=== PATIENT | female | born 1985 | race African-American/Black ===

== ENCOUNTER 2017-08-24 12:36 | Emergency (ER) | payer SELFPAY ==
--- NOTE | 2017-08-24 14:35 | ER Document Report ---
ED Neck/Back Problem - General Chief Complaint: Neck Swelling Stated Complaint: POSSIBLE ABSCESS ON NECK Time Seen by Provider: 08/24/17 14:06 Mode of Arrival: Ambulatory Information source: Patient Notes: Patient is a 31-year-old black female comes emergency room complaining that her anterior portion of her neck is swollen. Patient states that this is been going approximately 1-2 months and states that it is swollen but has no difficulty swallowing or has no type of pain. She also makes mention that her parents especially her mother has a history of thyroid problems. Patient also complains of being somewhat fatigued all the time, constipated, and slightly depressed. Patient denies any other medical problems. TRAVEL OUTSIDE OF THE [place] IN LAST 30 DAYS: No - HPI Patient complains to provider of: Neck. No: Pain, Injury, Upper back, Lower back, 6 Onset: Other - 1-2 months Where: Home Onset: Gradual Timing: Constant, Still present Quality of pain: No pain Severity: Mild Context: denies: Became dizzy, Bending, Fainted, Fall/near-fall, Lifting, Seizure, Turning, Other Associated symptoms: Constipation, Other - Fatigue, depression Exacerbated by: Nothing Relieved by: Nothing Similar symptoms previously: Yes Recently seen / treated by doctor: No - Related Data Allergies/Adverse Reactions: No Known Allergies Allergy (Verified 08/24/17 12:37) Past Medical History - General Information source: Patient Last Menstrual Period: Week ago - Social History Smoking Status: Current Every Day Smoker Cigarette use (# per day): Yes Chew tobacco use (# tins/day): No Smoking Education Provided: Yes - One half pack a day Frequency of alcohol use: None Drug Abuse: None Occupation: Currently unemployed Lives with: Family Family History: CAD, Hyperlipidemia, Hypertension, Thyroid Disfunction, Other - All first-degree relatives, breast cancer, diabetes Patient has suicidal ideation: No Patient has homicidal ideation: No - Medical History Medical History: Negative - Past Medical History Cardiac Medical History: Reports: None Renal/ Medical History: Denies: Hx Peritoneal Dialysis Review of Systems - Review of Systems Constitutional: Malaise, Weight gain, Weight loss EENT: No symptoms reported Cardiovascular: No symptoms reported Respiratory: No symptoms reported Gastrointestinal: No symptoms reported Genitourinary: No symptoms reported Female Genitourinary: No symptoms reported Musculoskeletal: No symptoms reported Skin: No symptoms reported Hematologic/Lymphatic: No symptoms reported Neurological/Psychological: No symptoms reported Physical Exam - Vital signs Vitals: Temp Pulse Resp BP Pulse Ox 98.3 F 80 16 132/79 H 99 08/24/17 12:39 08/24/17 12:39 08/24/17 12:39 08/24/17 12:39 08/24/17 12:39 - General General appearance: Appears well, Alert In distress: None - HEENT Head: Normocephalic, Atraumatic Eyes: Normal Tympanic membrane: Normal Sinus: Normal Nasal: Normal Mouth/Lips: Normal Mucous membranes: Normal, Moist Pharynx: Normal. No: Blood in hypopharynx, Erythema, Exudate, Peritonsillar abscess, Post nasal drainage, Retropharyngeal abscess, Tonsillar hypertrophy, Uvular edema, Potential airway comprom., Other Neck: Other - Examination patient's neck shows that she does have what appears to be an enlarged thyroid gland. On the swallow test patient does have both lobes seem to be slightly inflamed. No other findings at this time. Airway is patent - Respiratory Respiratory status: No respiratory distress Chest status: Nontender Breath sounds: Normal. No: Decreased air movement, Nonproductive cough, Productive cough, Rales, Rhonchi, Stridor, Wheezing, Other Chest palpation: Normal. No: Flail segment, [place]the frothy sputum, Purulent sputum , Subcutaneous emphysema, Sucking chest wound, Tender, Ecchymosis, Wounds, Other - Cardiovascular Rhythm: Regular Heart sounds: Normal auscultation Murmur: No - Neurological Neuro grossly intact: Yes Cognition: Normal Orientation: AAOx4 [place] Coma Scale Eye Opening: Spontaneous [place] Coma Scale Verbal: Oriented [place] Coma Scale Motor: Obeys Commands [place] Coma Scale Total: 15 Speech: Normal - Skin Skin Temperature: Warm Skin Moisture: Dry Skin Color: Normal, [place] Course - Vital Signs Vital signs: Temp Pulse Resp BP Pulse Ox 98.3 F 80 16 132/79 H 99 08/24/17 12:39 08/24/17 12:39 08/24/17 12:39 08/24/17 12:39 08/24/17 12:39 - Laboratory Result Diagrams: 08/24/17 14:50 08/24/17 14:50 Laboratory results interpreted by me: 08/24/17 08/24/17 14:50 14:50 Sodium 145.4 H TSH 0.44 L - Transfer of Care Notes: 08/24/17 16:13 I have explained to patient that she is slightly hyperthyroid at this point however the swelling of the thyroid gland she really needs to follow-up with somewhat outpatient. I do not know whether she has insurance or not I have [facility] about [facility] and informed her that she may use them for follow-up. I have explained to her this is not "a emergency type situation" however is something that a 31 she needs to have addressed relatively soon now is told her there is a possibility of having a thyroid type cancer and tried to explain this to her as well. Patient states she will follow-up outpatient. Discharge - Discharge Clinical Impression: Hyperthyroidism Condition: Good Disposition: HOME, SELF-CARE Instructions: Hypothyroidism ([facility]) Additional Instructions: As we discussed is highly important that you follow-up with a physician outpatient who can do more in-depth study including an ultrasound of the thyroid. If you should have any problems if he should have increased difficulty in swallowing or any other concerns return to ER for recheck. The discharge papers should have a number for the [facility] which I explained to how it works. Again should you have any concerns or problems return to ER for a recheck. Forms: Elevated Blood Pressure
[2017-08-24 15:13] LABS: ABSOLUTE EOSINOPHILS # (AUTO) 0.1 10^3/uL (0.0-0.6); ABSOLUTE LYMPHOCYTES (AUTO) 2.6 10^3/uL (0.5-4.7); ABSOLUTE MONOCYTES (AUTO) 0.4 10^3/uL (0.1-1.4); ABSOLUTE NEUT (AUTO) 2.8 10^3/uL (1.7-8.2); BASOPHILS % (AUTO) 0.7 % (0-2); EOSINOPHILS % (AUTO) 1.3 % (0-6); HEMOGLOBIN 12.6 g/dL (12.0-15.5); HGB HCT DIFFERENCE -0.2; LYMPHOCYTES % (AUTO) 44.6 % (13-45); MEAN CORPUSCULAR HEMOGLOBIN 28.6 pg (27.0-33.4); MEAN CORPUSCULAR HGB CONC 33.1 g/dL (32.0-36.0); MEAN CORPUSCULAR VOLUME 86 fl (80-97); MONOCYTES % (AUTO) 6.3 % (3-13); RED CELL DISTRIBUTION WIDTH 12.5 % (11.5-14.0); SEGMENTED NEUTROPHILS % (AUTO) 47.1 % (42-78); WHITE BLOOD COUNT 5.9 10^3/uL (4.0-10.5)
[2017-08-24 15:34] LABS: ANION GAP 14 (5-19); BLOOD UREA NITROGEN 16 mg/dL (7-20); CARBON DIOXIDE 28 mmol/L (22-30); CHLORIDE 103 mmol/L (98-107); CREATININE RESULT 0.84 mg/dL (0.52-1.25); GLUCOSE 83 mg/dL (75-110); POTASSIUM 4.4 mmol/L (3.6-5.0); SODIUM 145.4 mmol/L (137-145)
[2017-08-24 16:28] VITALS: BP 117/80
== END 2017-08-24 16:29 | disposition home or self-care (01) ==
LOC: ER 12:36
DX: E05.90 Thyrotoxicosis, unspecified without thyrotoxic crisis or storm (principal); R53.83 Other fatigue; R53.81 Other malaise; F32.9 Major depressive disorder, single episode, unspecified; Z83.49 Family history of other endocrine, nutritional and metabolic diseases; F17.210 Nicotine dependence, cigarettes, uncomplicated
CPT/HCPCS: 36415; 80048; 84443; 85025; 99283